=== PATIENT | female | born 1950 | race Caucasian/White ===

== ENCOUNTER → 2017-09-12 | Outpatient (CLI) | payer OTHER ==
--- NOTE | 2017-09-13 09:42 | RSPPFT ---
DATE OF PROCEDURE: 09/12/17 COMMENTS: Spirometry shows FVC of 2.2 at 69% of predicted, FEV1 of 1.7 at 72%, FEV1/FVC ratio is normal. Flow is normal at FEF 25-75. There is no response after bronchodilator treatment. Lung volumes show residual volume is decreased. TLC is decreased. Diffusion capacity is decreased. Flow volume loop indicates a normal pattern. Room air arterial blood gases show pH of 7.39, PCO2 of 40, PO2 of 104, BiCarb of 24 and O2 Saturation of 96%. 6-minute walk test shows no de-saturation. IMPRESSION: 1. Mild restrictive lung disease. 2. No response after bronchodilator. 3. Blood gases show normal oxygenation. 4. 6-minute walk test shows no de-saturation.
== END ==
LOC: PHRSP 07:12
PROVIDERS: ATTEND Specialist
DX: J84.89 Other specified interstitial pulmonary diseases (principal)
CPT/HCPCS: 36600; 82805; 94060; 94620; 94726; 94729